=== PATIENT | female | born 1960 | race Caucasian/White ===

== ENCOUNTER → 2016-04-23 | Outpatient (CLI) | payer MEDICARE | LOC: EXRD 15:11 | DX: M25.561 Pain in right knee (principal); M25.562 Pain in left knee; M25.511 Pain in right shoulder; Z88.0 Allergy status to penicillin | CPT/HCPCS: 73030; 73560 ==

== ENCOUNTER → 2016-04-25 | Outpatient (CLI) | payer MEDICARE ==
[2016-04-25 15:31] LABS: RED BLOOD COUNT 3.56 M/UL (4.00-5.10); WHITE BLOOD COUNT 5.4 K/UL (4.5-11.0)
[2016-04-25 15:52] LABS: BUN/CREATININE RATIO 10 (0-10)
== END ==
PROVIDERS: Physician Assistant
DX: E11.9 Type 2 diabetes mellitus without complications (principal); I10 Essential (primary) hypertension; E78.5 Hyperlipidemia, unspecified; Z88.0 Allergy status to penicillin
CPT/HCPCS: 36415; 80053; 80061; 82043; 82570; 85025

== ENCOUNTER → 2016-04-26 | Outpatient (CLI) | payer MEDICARE ==
[2016-04-26 16:08] LABS: HEMOGLOBIN 11.1 gm/dl (12.3-15.3); RED BLOOD COUNT 3.59 M/UL (4.00-5.10); WHITE BLOOD COUNT 5.9 K/UL (4.5-11.0)
[2016-04-26 16:30] LABS: BUN/CREATININE RATIO 11 (0-10)
== END ==
PROVIDERS: Physician Assistant
DX: D64.9 Anemia, unspecified (principal); E87.5 Hyperkalemia; R20.0 Anesthesia of skin
CPT/HCPCS: 36415; 80053; 82607; 82728; 82746; 83540; 83550; 83921; 85025

== ENCOUNTER 2016-05-09 16:11 | Emergency (ER) | payer MEDICARE ==
[2016-05-09 19:46] LABS: HEMOGLOBIN 10.7 gm/dl (12.3-15.3); RED BLOOD COUNT 3.48 M/UL (4.00-5.10); WHITE BLOOD COUNT 6.3 K/UL (4.5-11.0)
[2016-05-09 20:07] LABS: BUN/CREATININE RATIO 13 (0-10)
[2016-05-10 01:20] LABS: BUN/CREATININE RATIO 11 (0-10)
== END 2016-05-10 01:59 | disposition home or self-care (01) ==
LOC: ER1 16:11
PROVIDERS: Family Medicine
DX: E87.5 Hyperkalemia (principal); I10 Essential (primary) hypertension; Z88.0 Allergy status to penicillin; Z79.02 Long term (current) use of antithrombotics/antiplatelets; Z79.82 Long term (current) use of aspirin; Z79.84 Long term (current) use of oral hypoglycemic drugs; Z79.899 Other long term (current) drug therapy; E87.1 Hypo-osmolality and hyponatremia
CPT/HCPCS: 36415; 80048; 80053; 85025; 96374; 96375; 99285; J1815

== ENCOUNTER → 2016-05-09 | Outpatient (CLI) | payer MEDICARE ==
[2016-05-09 14:29] LABS: BUN/CREATININE RATIO 13 (0-10)
== END ==
LOC: LAB 13:24
PROVIDERS: Physician Assistant
DX: E87.1 Hypo-osmolality and hyponatremia (principal)
CPT/HCPCS: 36415; 80053

== ENCOUNTER → 2016-05-13 | Outpatient (CLI) | payer MEDICARE | LOC: MAMO 09:50 | DX: Z12.31 Encounter for screening mammogram for malignant neoplasm of breast (principal) | CPT/HCPCS: G0202 ==

== ENCOUNTER → 2016-05-16 | Outpatient (CLI) | payer MEDICARE ==
[2016-05-16 15:36] LABS: BUN/CREATININE RATIO 8 (0-10)
== END ==
LOC: LAB 14:47
PROVIDERS: Internal Medicine Nephrology
DX: E87.5 Hyperkalemia (principal); Z88.0 Allergy status to penicillin
CPT/HCPCS: 36415; 80048

== ENCOUNTER → 2016-07-30 | Outpatient (CLI) | payer MEDICARE ==
[2016-07-30 14:06] LABS: HEMOGLOBIN 10.8 gm/dl (12.3-15.3); RED BLOOD COUNT 3.45 M/UL (4.00-5.10); WHITE BLOOD COUNT 6.6 K/UL (4.5-11.0)
[2016-07-30 14:22] LABS: BUN/CREATININE RATIO 6 (0-10)
== END ==
LOC: LAB 13:29
PROVIDERS: Internal Medicine Nephrology
DX: D64.9 Anemia, unspecified (principal); E78.5 Hyperlipidemia, unspecified; I10 Essential (primary) hypertension
CPT/HCPCS: 36415; 80048; 80061; 85007; 85027

== ENCOUNTER → 2020-02-16 | Outpatient (CLI) | payer MEDICARE, SELFPAY ==
[~2020-02-16] MED LIST: ABILIFY 2 MG TAB2 MG PO; AMITRIPTYLINE100 MG PO; ASPIRIN EC81 MG PO; BUSPIRONE HCL10 MG PO; CYCLOBENZAPRINE10 MG PO; DEXILANT60 MG PO; DULOXETINE HCL60 MG PO; GABAPENTIN800 MG PO; GLIPIZIDE5 MG PO; HYDROCHLOROTH12.5 MG PO; HYDROCODON-ACE1 EAC2 PO; HYDROXYZINE PAM25 MG PO; ISOSORBIDE MONO60 MG PO; LOPRESSOR 50 MG50 MG PO; LOPRESSOR100 MG PO; NICOTINE PATCH1 EAC2 TD; NITROSTAT0.4 MG SL; NORCO 10-325 T1 EACH PO; PERCOCET 10-321 EACH PO; PLAQUENIL 200200 MG PO; PRAVASTATIN SOD20 MG PO; ROPINIROLE HCL1 MG PO; TRAZODONE HCL150 MG PO; VITAMIN D5000 UNIT PO; ZESTRIL5 MG PO
== END ==
LOC: MRI 07:43
DX: M47.22 Other spondylosis with radiculopathy, cervical region (principal); M50.122 Cervical disc disorder at C5-C6 level with radiculopathy; M51.24 Other intervertebral disc displacement, thoracic region; M48.04 Spinal stenosis, thoracic region; S22.020A Wedge compression fracture of second thoracic vertebra, initial encounter for closed fracture
CPT/HCPCS: 36415; 72156; 82565; 84520; A9577

== ENCOUNTER → 2020-06-13 | Outpatient (CLI) | payer MEDICARE ==
[2020-06-13 16:58] LABS: HEMOGLOBIN 11.3 gm/dl (12.3-15.3); RED BLOOD COUNT 3.52 M/UL (4.00-5.10); WHITE BLOOD COUNT 5.2 K/UL (4.5-11.0)
[2020-06-13 17:31] LABS: BUN/CREATININE RATIO 11 (0-10)
== END ==
LOC: LAB 15:45
PROVIDERS: Nurse Practitioner Family
DX: I10 Essential (primary) hypertension (principal); E11.9 Type 2 diabetes mellitus without complications; E55.9 Vitamin D deficiency, unspecified; Z79.899 Other long term (current) drug therapy
CPT/HCPCS: 80053; 80061; 82570; 82607; 84156; 84439; 84443; 85025

== ENCOUNTER → 2020-06-28 | Outpatient (CLI) | payer MEDICARE | LOC: LAB 14:15 | PROVIDERS: Nurse Practitioner Family | DX: E87.5 Hyperkalemia (principal); E87.1 Hypo-osmolality and hyponatremia | CPT/HCPCS: 36415; 80048 ==

== ENCOUNTER → 2020-07-27 | Outpatient (CLI) | payer MEDICARE | LOC: KOH-I 14:30 | DX: M81.0 Age-related osteoporosis without current pathological fracture (principal); M51.16 Intervertebral disc disorders with radiculopathy, lumbar region; M47.26 Other spondylosis with radiculopathy, lumbar region; M47.24 Other spondylosis with radiculopathy, thoracic region | CPT/HCPCS: 72148; 77080 ==

== ENCOUNTER → 2020-08-29 | Outpatient (CLI) | payer MEDICARE | LOC: KOH-I 10:22 → CT 11:30 | DX: M54.16 Radiculopathy, lumbar region (principal); M48.061 Spinal stenosis, lumbar region without neurogenic claudication; M48.07 Spinal stenosis, lumbosacral region; Z98.1 Arthrodesis status | CPT/HCPCS: 72131 ==

== ENCOUNTER → 2020-10-11 | Outpatient (CLI) | payer MEDICARE | LOC: ECHO 08:04 | DX: R06.00 Dyspnea, unspecified (principal); R07.89 Other chest pain; I20.9 Angina pectoris, unspecified | CPT/HCPCS: ECHO; 93306 ==

== ENCOUNTER → 2020-10-13 | Outpatient (CLI) | payer MEDICARE ==
[2020-10-13 15:38] LABS: RED BLOOD COUNT 3.66 M/UL (4.00-5.10)
[2020-10-13 16:02] LABS: BUN/CREATININE RATIO 14 (0-10)
== END ==
LOC: LAB 15:00
PROVIDERS: Nurse Practitioner Family
DX: I10 Essential (primary) hypertension (principal); E83.42 Hypomagnesemia; E87.1 Hypo-osmolality and hyponatremia; E11.9 Type 2 diabetes mellitus without complications; E55.9 Vitamin D deficiency, unspecified; Z79.899 Other long term (current) drug therapy
CPT/HCPCS: 36415; 80053; 80061; 82570; 82607; 84156; 84439; 84443; 85025

== ENCOUNTER → 2020-10-16 | Outpatient (CLI) | payer MEDICARE | LOC: HEART 5 09:07 | DX: Z01.818 Encounter for other preprocedural examination (principal); R06.00 Dyspnea, unspecified; S99.921A Unspecified injury of right foot, initial encounter | CPT/HCPCS: 73630; 94060; 94729 ==

== ENCOUNTER → 2020-10-25 | Outpatient (CLI) | payer MEDICARE | LOC: LAB 13:45 | PROVIDERS: Nurse Practitioner Family | DX: E87.1 Hypo-osmolality and hyponatremia (principal) | CPT/HCPCS: 36415; 80048 ==

== ENCOUNTER → 2020-11-23 | Outpatient (CLI) | payer MEDICARE | LOC: LAB 13:08 | PROVIDERS: Internal Medicine Nephrology | DX: E87.1 Hypo-osmolality and hyponatremia (principal); E78.1 Pure hyperglyceridemia | CPT/HCPCS: 36415; 80053; 83930; 84478 ==

== ENCOUNTER → 2020-12-04 | Outpatient (CLI) | payer MEDICARE ==
[~2020-12-04] MED LIST changes: +BUPROPION; +GLUCOPHAGE 500500 MG PO; +HYDROCODONE-AC1 EAC1 PO; +REMERON15 MG PO; +SEROQUEL100 MG PO
== END ==
LOC: US 15:00
PROVIDERS: Internal Medicine Nephrology
DX: E87.1 Hypo-osmolality and hyponatremia (principal); I82.401 Acute embolism and thrombosis of unspecified deep veins of right lower extremity
CPT/HCPCS: 36415; 80053; 93971

== ENCOUNTER → 2020-12-12 | Outpatient (CLI) | payer MEDICARE ==
[2020-12-12 11:07] LABS: HEMOGLOBIN 11.1 gm/dl (12.3-15.3); RED BLOOD COUNT 3.42 M/UL (4.00-5.10); WHITE BLOOD COUNT 4.8 K/UL (4.5-11.0)
[2020-12-12 11:37] LABS: BUN/CREATININE RATIO 13 (0-10)
== END ==
LOC: OPSV2 10:01 → EDSTATUS 10:30
PROVIDERS: Orthopaedic Surgery
DX: Z01.818 Encounter for other preprocedural examination (principal); M43.16 Spondylolisthesis, lumbar region; J98.11 Atelectasis; R94.31 Abnormal electrocardiogram [ECG] [EKG]
CPT/HCPCS: 36415; 71046; 80048; 81001; 83036; 85027; 85610; 85652; 85730; 86140; 87077; 87081; 87086; 87186; 93005

== ENCOUNTER → 2020-12-17 | Outpatient (CLI) | payer MEDICARE | LOC: LAB 12:30 | PROVIDERS: Orthopaedic Surgery | DX: Z01.812 Encounter for preprocedural laboratory examination (principal); M48.8X9 Other specified spondylopathies, site unspecified | CPT/HCPCS: 36415; 80048; 86850; 86900; 86901; 86920; 86927; P9016; P9017 ==

== ENCOUNTER 2020-12-18 09:14 | Inpatient (IN) | payer MEDICARE, OTHER ==
[~2020-12-18] VITALS: Ht 162.6 cm; Wt 93.0 kg
[~2020-12-18 09:14] MED LIST changes: -GLIPIZIDE5 MG PO; -GLUCOPHAGE 500500 MG PO
[2020-12-18 20:17] LABS: HEMOGLOBIN 11.5 gm/dl (12.3-15.3); RED BLOOD COUNT 3.51 M/UL (4.00-5.10); WHITE BLOOD COUNT 10.4 K/UL (4.5-11.0)
[2020-12-19 04:59] LABS: RED BLOOD COUNT 3.15 M/UL (4.00-5.10); WHITE BLOOD COUNT 13.9 K/UL (4.5-11.0)
[2020-12-19] MEDS ORDERED: GLUCOPHAGE 500500 MG PO (10:50)
[2020-12-19] MEDS ORDERED: GLIPIZIDE5 MG PO (10:53)
[2020-12-20 10:17] LABS: RED BLOOD COUNT 2.43 M/UL (4.00-5.10); WHITE BLOOD COUNT 7.6 K/UL (4.5-11.0)
[2020-12-20 10:19] LABS: HEMOGLOBIN 7.9 gm/dl (12.3-15.3)
[2020-12-21 07:03] LABS: HEMOGLOBIN 7.3 gm/dl (12.3-15.3); RED BLOOD COUNT 2.21 M/UL (4.00-5.10)
[2020-12-21 07:04] LABS: WHITE BLOOD COUNT 4.9 K/UL (4.5-11.0)
[2020-12-21 07:25] LABS: BUN/CREATININE RATIO 13 (0-10)
[2020-12-22 06:49] LABS: WHITE BLOOD COUNT 5.9 K/UL (4.5-11.0)
[2020-12-22 06:52] LABS: RED BLOOD COUNT 2.57 M/UL (4.00-5.10)
[2020-12-22 07:03] LABS: BUN/CREATININE RATIO 8 (0-10)
[2020-12-23 06:02] LABS: HEMOGLOBIN 9.5 gm/dl (12.3-15.3); RED BLOOD COUNT 2.9 M/UL (4.00-5.10)
[2020-12-23 06:27] LABS: BUN/CREATININE RATIO 12 (0-10)
[2020-12-24 08:30] LABS: BUN/CREATININE RATIO 18 (0-10)
[2020-12-25 06:28] LABS: HEMOGLOBIN 9.3 gm/dl (12.3-15.3); RED BLOOD COUNT 2.92 M/UL (4.00-5.10); WHITE BLOOD COUNT 6.8 K/UL (4.5-11.0)
[2020-12-26 05:52] LABS: HEMOGLOBIN 8.9 gm/dl (12.3-15.3); RED BLOOD COUNT 2.78 M/UL (4.00-5.10); WHITE BLOOD COUNT 6.5 K/UL (4.5-11.0)
--- NOTE | 2020-12-26 14:40 | NUR ---
1415 Unable to determine what pain medication patient was being discharged with. Attempted to reach Dr Sevilla without succcess. Spoke with patient, she said he had sent her prescription to [facility] because she had called to check.
== END 2020-12-26 14:46 | disposition home health service (06) | DRG 453 ==
LOC: OR 09:14 → CCU 21:07 → M/S 12-20 19:38 → OR 01-23 07:30
PROVIDERS: Internal Medicine; Internal Medicine Nephrology; ADMIT Orthopaedic Surgery
PROC: 01NB0ZZ Release Lumbar Nerve, Open Approach (ICD-10-PCS; 2020-12-18)
PROC: 0SP004Z Removal of Internal Fixation Device from Lumbar Vertebral Joint, Open Approach (ICD-10-PCS; 2020-12-18)
PROC: 30233N1 Transfusion of Nonautologous Red Blood Cells into Peripheral Vein, Percutaneous Approach (ICD-10-PCS; 2020-12-18)
PROC: 30233L1 Transfusion of Nonautologous Fresh Plasma into Peripheral Vein, Percutaneous Approach (ICD-10-PCS; 2020-12-18)
PROC: 0SG0071 Fusion of Lumbar Vertebral Joint with Autologous Tissue Substitute, Posterior Approach, Posterior Column, Open Approach (ICD-10-PCS; principal; 2020-12-18 15:15)
PROC: 0SG307J Fusion of Lumbosacral Joint with Autologous Tissue Substitute, Posterior Approach, Anterior Column, Open Approach (ICD-10-PCS; 2020-12-18 15:15)
DX: M43.16 Spondylolisthesis, lumbar region (principal); R57.1 Hypovolemic shock; D62 Acute posthemorrhagic anemia; N17.9 Acute kidney failure, unspecified; N30.00 Acute cystitis without hematuria; E87.2 Acidosis; E87.1 Hypo-osmolality and hyponatremia; T84.296A Other mechanical complication of internal fixation device of vertebrae, initial encounter; Z20.822 Contact with and (suspected) exposure to COVID-19; F32.A Depression, unspecified; I13.10 Hypertensive heart and chronic kidney disease without heart failure, with stage 1 through stage 4 chronic kidney disease, or unspecified chronic kidney disease; E11.22 Type 2 diabetes mellitus with diabetic chronic kidney disease; M06.9 Rheumatoid arthritis, unspecified; E11.51 Type 2 diabetes mellitus with diabetic peripheral angiopathy without gangrene; Z96.698 Presence of other orthopedic joint implants; D63.1 Anemia in chronic kidney disease; K74.60 Unspecified cirrhosis of liver; N18.2 Chronic kidney disease, stage 2 (mild); E87.5 Hyperkalemia; F17.290 Nicotine dependence, other tobacco product, uncomplicated; K75.81 Nonalcoholic steatohepatitis (NASH); M54.16 Radiculopathy, lumbar region; K59.00 Constipation, unspecified; G89.4 Chronic pain syndrome; M48.061 Spinal stenosis, lumbar region without neurogenic claudication; M81.0 Age-related osteoporosis without current pathological fracture; I95.9 Hypotension, unspecified; E78.5 Hyperlipidemia, unspecified; Y83.8 Other surgical procedures as the cause of abnormal reaction of the patient, or of later complication, without mention of misadventure at the time of the procedure; K21.9 Gastro-esophageal reflux disease without esophagitis; Z83.3 Family history of diabetes mellitus; Z82.61 Family history of arthritis; Z82.62 Family history of osteoporosis; Z88.0 Allergy status to penicillin; Z56.0 Unemployment, unspecified; Z79.4 Long term (current) use of insulin; Z95.1 Presence of aortocoronary bypass graft; Z87.01 Personal history of pneumonia (recurrent); Z87.442 Personal history of urinary calculi; Z98.1 Arthrodesis status
CPT/HCPCS: 36415; 36430; 72100; 76000; 80048; 80053; 82962; 84132; 85025; 85027; 86850; 86900; 86901; 86920; 87070; 87205; 94640; 94664; 97110-GP-CQ; 97116-GP-CQ; 97162; 97166; 97530-GP-CQ; 97535; C1713; C1762; C1781; J0610; J1040; J1100; J1170; J1644; J1940; J2250; J2370; J2405; J2704; J3010; J3370; J3475; J7030; J7040; J7050; J7120; P9016; P9017; P9047

== ENCOUNTER 2021-01-04 15:13 | Inpatient (IN) | payer MEDICARE, OTHER ==
[~2021-01-04] VITALS: Ht 160 cm; Wt 100.0 kg
[~2021-01-04 15:13] MED LIST changes: +GLIPIZIDE5 MG PO; +GLUCOPHAGE 500500 MG PO
[2021-01-04 16:03] LABS: HEMOGLOBIN 8.5 gm/dl (12.3-15.3); RED BLOOD COUNT 2.68 M/UL (4.00-5.10); WHITE BLOOD COUNT 15.5 K/UL (4.5-11.0)
[2021-01-05 03:36] LABS: HEMOGLOBIN 8.2 gm/dl (12.3-15.3); RED BLOOD COUNT 2.59 M/UL (4.00-5.10)
[2021-01-05 03:39] LABS: WHITE BLOOD COUNT 9.9 K/UL (4.5-11.0)
[2021-01-05 08:59] LABS: KPC-CARBAPENEM-RESISTANCE GENE Not Detected (Negative); mecA (METHICILLIN RESIST GENE Not Detected (Negative)
[2021-01-05 09:00] LABS: ACINETOBACTER BAUMANNII Not Detected (Negative); CANDIDA ALBICANS Not Detected (Negative); CANDIDA KRUSEI Not Detected (Negative); CANDIDA TROPICALIS Not Detected (Negative); ENTEROCOCCUS Not Detected (Negative); HAEMOPHILUS INFLUENZAE Not Detected (Negative); KLEBSIELLA OXYTOCA Not Detected (Negative); KLEBSIELLA PNEUMONIAE Not Detected (Negative); PROTEUS Not Detected (Negative); PSEUDOMONAS AERUGINOSA Not Detected (Negative); SERRATIA MARCESANS Not Detected (Negative); STAPHYLOCOCCUS Not Detected (Negative); STAPHYLOCOCCUS AUREUS Not Detected (Negative); STREP AGALACTIAE (GROUP B) Not Detected (Negative); STREP PYOGENES (GROUP A) Not Detected (Negative); STREPTOCOCCUS Not Detected (Negative); vanA/B (VANCOMYCIN RESIST GENE Not Detected (Negative)
[2021-01-05 09:01] LABS: ESCHERICHIA COLI DETECTED (Negative)
--- NOTE | 2021-01-05 15:24 | NUR ---
REPORT TO ELIZABETH Fox PATIENT TO BE TRANSFERRED TO ICU,2112.
--- NOTE | 2021-01-05 15:25 | NUR ---
1200, FAMILY NOTIFIED FOR CONSENT AND ALSO TOLD THAT PATIENT WILL BE TRANSFERRED TO ICU POST SURGERY
[2021-01-05 19:25] LABS: HEMOGLOBIN 8.7 gm/dl (12.3-15.3); RED BLOOD COUNT 2.8 M/UL (4.00-5.10)
[2021-01-05 19:59] LABS: WHITE BLOOD COUNT 13.4 K/UL (4.5-11.0)
[2021-01-06 04:49] LABS: HEMOGLOBIN 8.1 gm/dl (12.3-15.3); RED BLOOD COUNT 2.59 M/UL (4.00-5.10)
[2021-01-06 04:50] LABS: WHITE BLOOD COUNT 8.7 K/UL (4.5-11.0)
[2021-01-07 04:37] LABS: HEMOGLOBIN 8.4 gm/dl (12.3-15.3); RED BLOOD COUNT 2.7 M/UL (4.00-5.10)
[2021-01-07 05:06] LABS: WHITE BLOOD COUNT 13.1 K/UL (4.5-11.0)
[2021-01-08 05:23] LABS: HEMOGLOBIN 8.1 gm/dl (12.3-15.3); RED BLOOD COUNT 2.68 M/UL (4.00-5.10)
[2021-01-08 05:24] LABS: WHITE BLOOD COUNT 9.1 K/UL (4.5-11.0)
[2021-01-09 03:08] LABS: HEMOGLOBIN 7.6 gm/dl (12.3-15.3); RED BLOOD COUNT 2.6 M/UL (4.00-5.10); WHITE BLOOD COUNT 8.6 K/UL (4.5-11.0)
[2021-01-09 03:36] LABS: BUN/CREATININE RATIO 34 (0-10)
[2021-01-10 04:28] LABS: HEMOGLOBIN 8.3 gm/dl (12.3-15.3); RED BLOOD COUNT 2.72 M/UL (4.00-5.10); WHITE BLOOD COUNT 8.5 K/UL (4.5-11.0)
[2021-01-10 04:52] LABS: BUN/CREATININE RATIO 31 (0-10)
--- NOTE | 2021-01-11 10:17 | NUR ---
DR OTOOLE CHANGED PATIENT [place] DRAINS TODAY. SHE NOW HAS 2 SMALL BOXES WHICH ARE IN HER GOWN POCKET. DRESSING CLEAN DRY AND INTACT. NURSING TO EMPTY AND RECORD DRAINS EVERY 12 HOURS. PATIENT TOLERATED WELL. WILL CONTINUE TO MONITOR
[2021-01-11 22:36] LABS: BUN/CREATININE RATIO 24 (0-10)
[2021-01-12 15:37] LABS: HEMOGLOBIN 9.3 gm/dl (12.3-15.3)
[2021-01-12 15:38] LABS: RED BLOOD COUNT 3.05 M/UL (4.00-5.10); WHITE BLOOD COUNT 10.7 K/UL (4.5-11.0)
[2021-01-12 15:51] LABS: BUN/CREATININE RATIO 22 (0-10)
[2021-01-14 03:34] LABS: HEMOGLOBIN 8.8 gm/dl (12.3-15.3); RED BLOOD COUNT 2.87 M/UL (4.00-5.10); WHITE BLOOD COUNT 8.5 K/UL (4.5-11.0)
[2021-01-14 04:02] LABS: BUN/CREATININE RATIO 13 (0-10)
[2021-01-16 03:01] LABS: HEMOGLOBIN 9.9 gm/dl (12.3-15.3); WHITE BLOOD COUNT 6.9 K/UL (4.5-11.0)
[2021-01-16 03:02] LABS: RED BLOOD COUNT 3.28 M/UL (4.00-5.10)
[2021-01-16 03:13] LABS: BUN/CREATININE RATIO 10 (0-10)
[2021-01-18 02:55] LABS: HEMOGLOBIN 9.2 gm/dl (12.3-15.3); WHITE BLOOD COUNT 6.8 K/UL (4.5-11.0)
[2021-01-18 03:23] LABS: BUN/CREATININE RATIO 11 (0-10)
--- NOTE | 2021-01-18 14:16 | NUR ---
NO CHANGE FROM PREVIOUS ASSESSMENT
[2021-01-20 03:36] LABS: HEMOGLOBIN 9.4 gm/dl (12.3-15.3); RED BLOOD COUNT 3.11 M/UL (4.00-5.10); WHITE BLOOD COUNT 5.2 K/UL (4.5-11.0)
[2021-01-20 04:21] LABS: BUN/CREATININE RATIO 14 (0-10)
--- NOTE | 2021-01-20 16:28 | NUR ---
0830 ATTEMPTED IV ACCESS X2 WITH NO SUCCESS. PATIENT BECAME UPSET AND REQUESTED THAT SHE NOT GET "POKED" FOR A "WHILE". DR COATS MADE AWARE OF PATIENT PICC LINE BEING ACCIDENTALLY PULLED OUT BY PATIENT, THEN D/C'D BY NURSE.
--- NOTE | 2021-01-20 16:33 | NUR ---
1430 PATIENT REFUSED TO LET NURSE ATTEMPT IV ACCESS UNTIL THIS TIME. #22G IV INSERTED TO RIGHT WRIST.
[2021-01-20 19:34] LABS: BORDETELLA PARAPERTUSSIS Not Detected (Not Detectd); BORDETELLA PERTUSSIS Not Detected (Not Detectd); CHLAMYDIA PNEUMONIAE Not Detected (Not Detectd); CORONAVIRUS HKU1 Not Detected (Not Detectd); CORONAVIRUS NL63 Not Detected (Not Detectd); CORONAVIRUS OC43 Not Detected (Not Detectd); CORONOAVIRUS 229E Not Detected (Not Detectd); HUMAN METAPNEUMOVIRUS Not Detected (Not Detectd); HUMAN RHINOVIRUS/ENTEROVIRUS Not Detected (Not Detectd); INFLUENZA A Not Detected (Not Detectd); INFLUENZA B Not Detected (Not Detectd); MYCOPLASMA PNEUMONIAE Not Detected (Not Detectd); PARAINFLUENZA VIRUS 1 Not Detected (Not Detectd); PARAINFLUENZA VIRUS 2 Not Detected (Not Detectd); PARAINFLUENZA VIRUS 3 Not Detected (Not Detectd); PARAINFLUENZA VIRUS 4 Not Detected (Not Detectd); RESPIRATORY SYNCYTIAL VIRUS Not Detected (Not Detectd)
[2021-01-20 20:33] LABS: SARS-CoV-2 NOT DETECTED (Not Detectd)
[2021-01-21 04:34] LABS: HEMOGLOBIN 8.8 gm/dl (12.3-15.3); RED BLOOD COUNT 2.85 M/UL (4.00-5.10); WHITE BLOOD COUNT 5.2 K/UL (4.5-11.0)
[2021-01-21 05:27] LABS: BUN/CREATININE RATIO 13 (0-10)
[2021-01-22 04:19] LABS: HEMOGLOBIN 8.4 gm/dl (12.3-15.3); RED BLOOD COUNT 2.86 M/UL (4.00-5.10)
[2021-01-22 04:27] LABS: BUN/CREATININE RATIO 13 (0-10)
[2021-01-23 03:41] LABS: HEMOGLOBIN 9.3 gm/dl (12.3-15.3); RED BLOOD COUNT 3.05 M/UL (4.00-5.10); WHITE BLOOD COUNT 4.8 K/UL (4.5-11.0)
[2021-01-23 04:06] LABS: BUN/CREATININE RATIO 16 (0-10)
[2021-01-23 18:41] LABS: RED BLOOD COUNT 3.3 M/UL (4.00-5.10); WHITE BLOOD COUNT 7.4 K/UL (4.5-11.0)
[2021-01-23 18:53] LABS: BUN/CREATININE RATIO 16 (0-10)
[2021-01-24 03:34] LABS: HEMOGLOBIN 9.1 gm/dl (12.3-15.3); RED BLOOD COUNT 3.02 M/UL (4.00-5.10)
[2021-01-24 04:14] LABS: BUN/CREATININE RATIO 17 (0-10)
[2021-01-25 05:19] LABS: BUN/CREATININE RATIO 17 (0-10)
[2021-01-26 05:19] LABS: BUN/CREATININE RATIO 19 (0-10)
[2021-01-27 03:34] LABS: BUN/CREATININE RATIO 19 (0-10)
[2021-01-27 09:44] LABS: HEMOGLOBIN 7.9 gm/dl (12.3-15.3); RED BLOOD COUNT 2.61 M/UL (4.00-5.10); WHITE BLOOD COUNT 4.4 K/UL (4.5-11.0)
[2021-01-29 04:17] LABS: HEMOGLOBIN 8.5 gm/dl (12.3-15.3); RED BLOOD COUNT 2.78 M/UL (4.00-5.10)
[2021-01-29 04:33] LABS: BUN/CREATININE RATIO 18 (0-10)
--- NOTE | 2021-01-30 16:36 | NUR ---
SPOKE WITH PT RE: PICC LINE PLACEMENT. PT HAS HAD A PICC LINE IN THE RECENT PAST, AND STATED THAT IT FELL OUT. RIGHT IJ TLC IN PLACE AT PRESENT. PT WANTS TO SPEAK WITH MD PRIOR TO HAVING PICC PLACED. WILL READDRESS ON 01/31.
[2021-02-01 04:18] LABS: BUN/CREATININE RATIO 18 (0-10)
[2021-02-01 06:09] LABS: HEMOGLOBIN 9.2 gm/dl (12.3-15.3); RED BLOOD COUNT 3.05 M/UL (4.00-5.10); WHITE BLOOD COUNT 5.8 K/UL (4.5-11.0)
[2021-02-01] MEDS ORDERED: HUMALOG 10100 UNITS/ SC (09:27)
[2021-02-01] MEDS ORDERED: PROTONIX 40 MG40 M1 PO (09:27)
[2021-02-01] MEDS ORDERED: ACETAMINOPHEN500 MG PO (09:27)
[2021-02-01] MEDS ORDERED: FERROUS GLUCON324 M1 PO (09:27)
[2021-02-01] MEDS ORDERED: ENOXAPARIN40 MG/0.4 SC (09:27)
[2021-02-01] MEDS ORDERED: GABAPENTIN300 MG PO (09:27)
[2021-02-01] MEDS ORDERED: MAG-OX 400 TAB400 MG PO (09:27)
[2021-02-01] MEDS ORDERED: LOPRESSOR 25 MG25 MG PO (09:27)
[2021-02-01] MEDS ORDERED: QUETIAPINE FUM100 MG PO (09:27)
[2021-02-01] MEDS ORDERED: ROXICODONE TAB 55 MG PO (09:27)
--- NOTE | 2021-02-01 09:41 | NUR ---
SINGLE LUMEN PICC LINE PLACED IN THE RIGHT BASILIC VEIN, CUT TO 38 CM. US GUIDANCE USED TO OBTAIN VENOUS ACCESS. 3CG TECHNOLOGY USED TO CONFIRM PICC TIP IN SVC. STERILE TECHNIQUE USED THROUGHOUT CASE. STERILE DRESSING APPLIED AND DATED. ASPIRATES AND FLUSHES EASILY. UPPER ARM CIRC = 31 CM, LOWER ARM CIRC = 28.5 CM. NO COMPLICATIONS. ORIGINAL PICC LINE PULLED PER PT APPROXIMATELY 2 WEEKS AGO. PICC PLACEMENT FOR D/C TODAY.
--- NOTE | 2021-02-03 15:32 | NUR ---
PATIENT REQUESTS BENADRYL FOR ITCHING TO BACK. NOTIFIED. NEW ORDER FOR BENADRYL NOTED.
[2021-02-05 06:33] LABS: HEMOGLOBIN 8.8 gm/dl (12.3-15.3); RED BLOOD COUNT 2.88 M/UL (4.00-5.10); WHITE BLOOD COUNT 6.5 K/UL (4.5-11.0)
[2021-02-05 07:06] LABS: BUN/CREATININE RATIO 16 (0-10)
[2021-02-06] MEDS ORDERED: VANCOMYCIN (12:14)
[2021-02-06] MEDS ORDERED: MEROPENEM (12:14)
[2021-02-06] MEDS ORDERED: [UNRECOGNIZED DRUG - OTHER] (12:14)
[2021-02-06] MEDS ORDERED: ROXICODONE TAB 55 MG PO (13:02)
[2021-02-06] MEDS ORDERED: GABAPENTIN300 MG PO (13:02)
== END 2021-02-06 22:25 | disposition swing bed (61) | DRG 856 ==
LOC: ER1 15:13 → M/S 16:03 → PROG CARE 16:03 → CDU 16:03 → PROG CARE 19:18 → CCU 01-05 17:03 → PROG CARE 01-08 14:14 → M/S 01-28 15:25
PROVIDERS: Emergency Medicine; Internal Medicine; Internal Medicine Infectious Disease; Internal Medicine Nephrology; Nurse Practitioner Family; Orthopaedic Surgery; ADMIT Internal Medicine
PROC: 0S900ZZ Drainage of Lumbar Vertebral Joint, Open Approach (ICD-10-PCS; 2021-01-05)
PROC: 30233N1 Transfusion of Nonautologous Red Blood Cells into Peripheral Vein, Percutaneous Approach (ICD-10-PCS; 2021-01-05)
PROC: 3E033XZ Introduction of Vasopressor into Peripheral Vein, Percutaneous Approach (ICD-10-PCS; principal; 2021-01-05 14:30)
PROC: 02HV33Z Insertion of Infusion Device into Superior Vena Cava, Percutaneous Approach (ICD-10-PCS; 2021-01-15)
PROC: 0S900ZZ Drainage of Lumbar Vertebral Joint, Open Approach (ICD-10-PCS; 2021-01-23)
PROC: 5A0955A Assistance with Respiratory Ventilation, Greater than 96 Consecutive Hours, High Flow/Velocity Cannula (ICD-10-PCS; 2021-01-24)
DX: T81.49XA Infection following a procedure, other surgical site, initial encounter (principal); A41.51 Sepsis due to Escherichia coli [E. coli]; R65.21 Severe sepsis with septic shock; J18.9 Pneumonia, unspecified organism; J80 Acute respiratory distress syndrome; G92.8 Other toxic encephalopathy; N17.0 Acute kidney failure with tubular necrosis; S32.10XA Unspecified fracture of sacrum, initial encounter for closed fracture; E87.1 Hypo-osmolality and hyponatremia; E87.2 Acidosis; L02.212 Cutaneous abscess of back [any part, except buttock and flank]; Z20.822 Contact with and (suspected) exposure to COVID-19; I25.10 Atherosclerotic heart disease of native coronary artery without angina pectoris; E11.22 Type 2 diabetes mellitus with diabetic chronic kidney disease; E11.51 Type 2 diabetes mellitus with diabetic peripheral angiopathy without gangrene; I12.9 Hypertensive chronic kidney disease with stage 1 through stage 4 chronic kidney disease, or unspecified chronic kidney disease; N18.9 Chronic kidney disease, unspecified; N30.90 Cystitis, unspecified without hematuria; B96.20 Unspecified Escherichia coli [E. coli] as the cause of diseases classified elsewhere; G89.29 Other chronic pain; M06.9 Rheumatoid arthritis, unspecified; E66.9 Obesity, unspecified; R53.81 Other malaise; D50.9 Iron deficiency anemia, unspecified; E11.65 Type 2 diabetes mellitus with hyperglycemia; K74.60 Unspecified cirrhosis of liver; K76.0 Fatty (change of) liver, not elsewhere classified; I73.9 Peripheral vascular disease, unspecified; E87.5 Hyperkalemia; Z88.0 Allergy status to penicillin; Z95.1 Presence of aortocoronary bypass graft; Z83.3 Family history of diabetes mellitus; Z79.84 Long term (current) use of oral hypoglycemic drugs; Z79.899 Other long term (current) drug therapy; Z68.36 Body mass index [BMI] 36.0-36.9, adult
CPT/HCPCS: ECHO; 36415; 36600; 71045; 71250; 72100; 72131; 72158; 80048; 80053; 80202; 81001; 82436; 82570; 82607; 82728; 82746; 82803; 82962; 83540; 83550; 83605; 83735; 83880; 83935; 84132; 84133; 84300; 85025; 85027; 85610; 85652; 86140; 86850; 86900; 86901; 86920; 87040; 87070; 87077; 87081; 87086; 87150; 87186; 87205; 87633; 93005; 93306; 93970; 94002; 94003; 94640; 94664; 94760; 97110-GP-CQ; 97116; 97116-GP-CQ; 97163; 97166; 97530; 97530-GP-CQ; 97535; 99285; A9577; C1713; C1751; J0610; J0696; J0713; J1100; J1170; J1580; J1644; J1650; J1720; J1756; J1940; J2001; J2060; J2185; J2270; J2370; J2405; J2704; J2710; J3010; J3260; J3370; J3475; J7030; J7040; J7050; J7070; J7120; P9016; P9045; U0002

== ENCOUNTER → 2021-07-11 | Outpatient (CLI) | payer MEDICARE, OTHER ==
[~2021-07-11] MED LIST changes: +ACETAMINOPHEN500 MG PO; +ENOXAPARIN40 MG/0.4 SC; +FERROUS GLUCON324 M1 PO; +GABAPENTIN300 MG PO; +HUMALOG 10100 UNITS/ SC; +LOPRESSOR 25 MG25 MG PO; +MAG-OX 400 TAB400 MG PO; +MEROPENEM; +PROTONIX 40 MG40 M1 PO; +QUETIAPINE FUM100 MG PO; +ROXICODONE TAB 55 MG PO; +VANCOMYCIN; +[UNRECOGNIZED DRUG - OTHER]
[2021-07-11 17:10] LABS: HEMOGLOBIN 12.4 gm/dl (12.3-15.3); RED BLOOD COUNT 3.79 M/UL (4.00-5.10); WHITE BLOOD COUNT 4.9 K/UL (4.5-11.0)
[2021-07-11 17:36] LABS: BUN/CREATININE RATIO 20 (0-10)
== END ==
LOC: LAB 16:32
PROVIDERS: Nurse Practitioner Family
DX: E78.5 Hyperlipidemia, unspecified (principal); I10 Essential (primary) hypertension; E11.9 Type 2 diabetes mellitus without complications; E55.9 Vitamin D deficiency, unspecified; Z79.899 Other long term (current) drug therapy
CPT/HCPCS: 36415; 80053; 80061; 82570; 82607; 83036; 84156; 84439; 84443; 85025